=== PATIENT | male | born 1955 | race Two or more races ===

== ENCOUNTER 2019-04-29 13:18 | Outpatient (CLI) | payer MEDICARE ==
[~2019-04-29] VITALS: Ht 177.8 cm; Wt 90.7 kg
[2019-04-29] MEDS ORDERED: HUMALOG 75/255 UNIT1 SUBQ (15:51)
[2019-04-29] MEDS ORDERED: BACLOFEN10 MG ORAL (15:51)
[2019-04-29] MEDS ORDERED: KEPPRA500 M4 ORAL (15:51)
[2019-04-29] MEDS ORDERED: LANTUS SOL100 UNIT/1 SUBQ (15:51)
[2019-04-29] MEDS ORDERED: VITAMIN B-12500 MCG ORAL (15:51)
[2019-04-29] MEDS ORDERED: PEPCID AC20 M2 PO (15:51)
[2019-04-29] MEDS ORDERED: VITAMIN D-40400 UNIT ORAL (15:51)
[2019-04-29] MEDS ORDERED: CRESTOR10 M2 ORAL (15:51)
[2019-04-29] MEDS ORDERED: CELEXA20 MG ORAL (15:51)
[2019-04-29] MEDS ORDERED: TRULICITY0.75 MG/0. SQ (15:51)
[2019-04-29] MEDS ORDERED: SEROQUEL XR50 MG ORAL (15:51)
[2019-04-29] MEDS ORDERED: VITAMIN C500 M1 ORAL (15:51)
[2019-04-29] MEDS ORDERED: METOPROLOL SUCC25 MG ORAL (15:51)
[2019-04-29 15:52] VITALS: BP 123/73
--- NOTE | 2019-04-29 21:00 | Consultation ---
DATE OF CONSULTATION: 04/29/2019 GASTROENTEROLOGY CONSULTATION CHIEF COMPLAINT: G-tube removal. HISTORY OF PRESENT ILLNESS: This is an unfortunate 63-year-old [place] male with past medical history of C. diff colitis requiring total colectomy, history of respiratory failure with tracheostomy, history of dysphagia with G-tube was referred to us for G-tube removal. PAST MEDICAL HISTORY: 1. C. diff. 2. Diabetes. 3. Hypertension. 4. Hypercholesteremia. PAST SURGICAL HISTORY: Total colectomy. MEDICATIONS: Please see medication reconciliation list. ALLERGIES: Sulfa. FAMILY HISTORY: Noncontributory. SOCIAL HISTORY: Currently lives at home. He has a very supportive family. There is no recent tobacco, alcohol, or illicit drug abuse. REVIEW OF SYSTEMS: A 10-point review of systems was performed and pertinent positives in the HPI. PHYSICAL EXAMINATION: VITAL SIGNS: Temperature 97.8, blood pressure is 123/74, pulse is 87, and respirations 20. HEENT: Normocephalic and atraumatic. Sclerae anicteric. NECK: Supple. No evidence of obvious lymphadenopathy. CARDIOVASCULAR: Regular rhythm. Plus S1 and S2. LUNGS: Decreased breath sounds bilaterally based on the supine exam. ABDOMEN: Soft. Bowel sounds are present. There is a G-tube in place. No rebound. No guarding. No peritoneal sign. EXTREMITIES: No cyanosis, no clubbing, no edema. ASSESSMENT AND PLAN: This is a 63-year-old male with total colectomy from C. diff was referred to us for G-tube removal. We have removed the G-tube at the bedside without any complication. The G-tube site was ____ covered by 4x4s. The patient was instructed not to take a shower for 24 hours. Call office if there is any significant pain or bleeding. Otherwise, return to clinic. I want to thank, Dr. Jaya Tucker, for this kind referral. Cheng Lazo M.D. DR: JESUS JOB#: [id number] CC: Jaya Tucker M.D.; Fax#: [phone]
== END 2019-04-29 15:18 | disposition home or self-care (01) ==
LOC: PAN 13:18
DX: Z43.1 Encounter for attention to gastrostomy (principal); E11.9 Type 2 diabetes mellitus without complications; I10 Essential (primary) hypertension; E78.00 Pure hypercholesterolemia, unspecified
CPT/HCPCS: 99202